=== PATIENT | male | born 1955 | race Caucasian/White ===

== ENCOUNTER → 2024-10-25 15:46 | Outpatient (BNVA) | payer MEDICARE, SELFPAY | PROVIDERS: PCP Family Medicine; Visit Provider Family Medicine | DX: Z13.6 Encounter for screening for cardiovascular disorders (principal) | CPT/HCPCS: 80053; 85025 ==

== ENCOUNTER 2024-10-26 14:32 | Outpatient (RCR) | payer MEDICARE, SELFPAY | END 2024-11-25 23:59 | disposition home or self-care (01) | LOC: SR3 14:32 | PROVIDERS: PCP Family Medicine; Visit Provider Student in an Organized Health Care Education/Training Program | DX: S06.5X0S Traumatic subdural hemorrhage without loss of consciousness, sequela (principal); M62.81 Muscle weakness (generalized); R26.89 Other abnormalities of gait and mobility; X58.XXXS Exposure to other specified factors, sequela | CPT/HCPCS: 92507; 92523; 97110; 97112; 97116; 97161; 97167 ==

== ENCOUNTER 2024-11-26 06:30 | Outpatient (RCR) | payer MEDICARE, SELFPAY | END 2024-12-26 23:59 | disposition home or self-care (01) | LOC: SR3 06:30 | PROVIDERS: PCP Family Medicine; Visit Provider Student in an Organized Health Care Education/Training Program | DX: S06.5X0S Traumatic subdural hemorrhage without loss of consciousness, sequela (principal); X58.XXXS Exposure to other specified factors, sequela; M62.81 Muscle weakness (generalized); R26.89 Other abnormalities of gait and mobility | CPT/HCPCS: 92507; 97110; 97116; 97164 ==